=== PATIENT | female | born 1970 | race Caucasian/White ===

== ENCOUNTER 2016-10-05 13:21 | Emergency (ER) | payer OTHER ==
[~2016-10-05] VITALS: Ht 162.6 cm; Wt 117.9 kg
[2016-10-05 13:25] VITALS: BP_SYST 151
--- NOTE | 2016-10-05 13:30 | NUR ---
Patient to ER bed 8 to gown for evaluation. Side rails up. Report given to Mary Lou TIAN.
--- NOTE | 2016-10-05 13:35 | NUR ---
Dr Saleh at bedside examining patient
--- NOTE | 2016-10-05 13:36 | NUR ---
Pt brought by self,A&O x4, pt c/o one episode of SOB and palpitations, pt has Hx of heart stents, ambulatory, skin pink and warm, cap refill <3, VS WNL,respirations even and unlabored.
[2016-10-05 14:07] LABS: BASOPHILS # (AUTO) 0.1 K/uL (0.0-0.2); BASOPHILS % (AUTO) 0.9 % (0.0-2.0); EOSINOPHILS # (AUTO) 0.1 K/uL (0.0-0.4); EOSINOPHILS % (AUTO) 1.1 % (0.0-4.0); HEMATOCRIT 39.5 % (36-48); HEMOGLOBIN 13.1 g/dL (12.0-16.0); LYMPHOCYTES % (AUTO) 29.2 % (20.5-51.5); MEAN CORPUSCULAR HEMOGLOBIN 27 pg (27-31); MEAN CORPUSCULAR HGB CONC 33 % (32-36); MEAN CORPUSCULAR VOLUME 82 fL (79.0-98.0); MONOCYTES # (AUTO) 0.3 K/uL (0.0-1.0); MONOCYTES % (AUTO) 4.2 % (1.7-9.3); NEUTROPHILS # (AUTO) 4.3 K/uL (1.8-7.7); NEUTROPHILS % (AUTO) 64.6 % (40.0-70.0); PLATELET COUNT (AUTO) 277 K/uL (130-430); RED CELL DISTRIBUTION WIDTH 13.2 % (9.0-15.0); WHITE BLOOD COUNT (AUTO) 6.8 K/uL (4.8-10.8)
[2016-10-05 14:40] LABS: BILIRUBIN,URINE NEGATIVE (NEGATIVE); BLOOD, URINE 1+ (NEGATIVE); CLARITY/URINE SL HAZY (CLEAR); COLOR,URINE YELLOW (YELLOW); GLUCOSE,URINE NEGATIVE (NEGATIVE); KETONES,URINE NEGATIVE (NEGATIVE); LEUKOCYTE ESTERASE ,URINE NEGATIVE (NEGATIVE); NITRITE, URINE POSITIVE (NEGATIVE); PROTEIN URINE NEGATIVE (NEGATIVE); UROBILINOGEN,URINE 0.2 (0.2-1.0)
[2016-10-05 14:46] LABS: CREATININE 0.73 mg/dL (0.55-1.30); POTASSIUM 3.6 mmol/L (3.5-5.1)
[2016-10-05 14:47] LABS: BACTERIA,URINE FEW /HPF (None Seen); RBC,URINE 0-3 /HPF (0-3); WBC,URINE 0-3 /HPF (0-3)
[2016-10-05 14:51] LABS: TOTAL BILIRUBIN 0.5 mg/dL (0.0-1.0); TOTAL PROTEIN, SERUM 7.9 g/dL (6.4-8.3)
--- NOTE | 2016-10-05 15:14 | NUR ---
Pt has no acute distress noted.PT VSS.
--- NOTE | 2016-10-05 16:05 | NUR ---
ALFONSO called for to
--- NOTE | 2016-10-05 18:30 | NUR ---
pt given evening tray. Pt consumed 100% tolerated well. awaiting transport
--- NOTE | 2016-10-05 19:00 | NUR ---
Patient to be transferred to [facility]. Is being transferred due to higher level of care. Receiving facility has accepting physician and available space. ER physician has signed transfer form. Patient or responsible green party has agreed to transfer and signed form. Patient belongings inventoried and will be sent with patient. Copy of nursing notes, lab reports, EKG, Physicians Orders and X-rays to be sent with patient. Report called to ASMITA Felipe at receiving facility. Receiving physician is DR. Ragland. [facility] ambulance service has been called for transfer. ETA is 1930 .
[2016-10-05 19:25] VITALS: BP_SYST 127
--- NOTE | 2016-10-05 19:25 | NUR ---
[facility]
== END 2016-10-05 19:25 | disposition short-term general hospital (02) ==
LOC: SED 13:21
DX: R00.2 Palpitations (principal); R05 Cough; I25.2 Old myocardial infarction
CPT/HCPCS: 36415; 71010; 80053; 81000-TC; 81025; 84484; 85025; 87086; 93005; 99291